=== PATIENT | female | born 1980 | race Caucasian/White ===

== ENCOUNTER 2019-07-23 08:22 | Emergency (ER) | payer OTHER, SELFPAY ==
--- NOTE | ~2019-07-23 | XR_ITS ---
XR hand LT min 3V DATE: 07/23/2019 08:48 INDICATION: Fall 3 weeks ago. Pain, particularly fourth and fifth digits TECHNIQUE: 3 views of the left hand COMPARISON: None FINDINGS: No fracture, dislocation, periosteal reaction or bone destruction. Negative ulnar variance. IMPRESSION: No fracture or dislocation Reviewed, dictated and finalized at location A. R CASER IMPRESSION: No fracture or dislocation
[2019-07-23 08:30] VITALS: BP 140/82; PULSE 77; RESP 16; TEMP 36.7; O2SAT 100
--- NOTE | 2019-07-23 08:41 | ED.GENADULT ---
HPI - General Adult General Chief complaint: Extremity Injury, Upper Stated complaint: left hand wrist injury Time Seen by Provider: 07/23/19 08:38 Source: patient and RN notes reviewed Mode of arrival: ambulatory Limitations: no limitations History of Present Illness HPI narrative: 38-year-old female presents with left lateral hand pain for 21 days. Malou says she injured her hand when she landed on it while going up a step at home. Initially had bruising and swelling in which has subsided, tenderness remains. No radiation of pain. No loss of mobility. Exacerbating factors consist of palpation and movement. The relieving factors is immobility. Dominant hand is the RIGHT HAND. No suspected abuse. Malou denies being , LMP 07/23/2019. Some parts of this dictation were generated by voice recognition software and may contain typographical and/or grammatical inaccuracies. Related Data Home Medications Medication Instructions Recorded Confirmed metformin 1,500 mg PO DAILY 07/23/19 07/23/19 Allergies Allergy/AdvReac Type Severity Reaction Status Date / Time No Known Allergies Allergy Verified 07/23/19 08:40 Review of Systems Review of Systems: Narrative: CONSTITUTIONAL: Denies fever, chills, sweats. EYES: Denies visual changes, redness, discharge. ENT: Denies rhinorrhea, congestion, sore throat, otalgia. CARDIOVASCULAR: Denies chest pain, palpitations, edema. RESPIRATORY: Denies dyspnea, wheezing, cough. GASTROINTESTINAL: Denies abdominal pain, nausea, vomiting, diarrhea. GENITOURINARY: Denies dysuria, hematuria, abnormal discharge. SKIN: Denies rash or itching. MUSCULOSKELETAL: Denies acute back pain or myalgia. Complains of Left lateral hand pain. NEUROLOGIC: Denies numbness or focal weakness. PSYCHIATRIC: Denies anxiety or depression. All other systems reviewed & are unremarkable except as noted in HPI and below. [facility]LY [facility] Past Medical History Medical History (Updated 07/23/19 @ 09:08 by [email or web address] Tate) Endometriosis PCOS (polycystic ovarian syndrome) Surgical History Surgical History (Updated 07/23/19 @ 09:08 by KRZYSZTOF Tate) History of left oophorectomy Family History Family History (Updated 07/23/19 @ 09:07 by KRZYSZTOF Tate) Grandparent Diabetes mellitus Mother Diabetes mellitus Father Atrial fibrillation Grandparent Carcinoma of colon Bile duct Social History Social History (Updated 07/23/19 @ 08:47 by KRZYSZTOF Tate) Smoking status: Former smoker Additional smoking assessment comments: Quit smoking about 13 years ago Alcohol intake: current Substance use type: marijuana Living arrangements: with family Occupation/Education: occupation Gender identity (if verbalized by the patient): Female Comments At time of signature, agree with nurse past medical, surgical, social, and family history. There is no relevant family history pertinent to the presenting complaint. Exam Narrative: Exam Narrative: GENERAL: This is a well-nourished, well-developed patient, in no apparent distress. HEAD: normocephalic, atraumatic. EYES: PERRL. Sclera clear/white. Vision is grossly intact. NECK: Neck supple, non-tender without lymphadenopathy, masses or thyromegaly. CARDIOVASCULAR: Regular rate and rhythm without murmurs, gallops, or rubs. RESPIRATORY: Clear to auscultation. Breath sounds equal bilaterally. No wheezes, rales, or rhonchi. GASTROINTESTINAL: Abdomen soft, non-tender, nondistended. Bowel sounds are active. No hepato-splenomegaly, or palpable masses. No guarding. SKIN: warm, intact with no suspicious lesions or rash, good texture and turgor. NEURO: awake, alert, and oriented to person, place and time. There were no obvious focal neurologic abnormalities. Steady gait EXTREMITIES: No clubbing, cyanosis, or edema. LT hand exam/wrist exam skin intact. LT lateral hand with mild tenderness with palpation. No lacerations. No sw
== END 2019-07-23 09:00 | disposition home or self-care (01) ==
PROVIDERS: Emergency Provider Nurse Practitioner Family
DX: S63.92XA Sprain of unspecified part of left wrist and hand, initial encounter (principal); W10.9XXA Fall (on) (from) unspecified stairs and steps, initial encounter
CPT/HCPCS: 73130; 99203; G0463

== ENCOUNTER 2020-11-23 08:00 | Emergency (ER) | payer OTHER, SELFPAY ==
[2020-11-23 08:07] VITALS: BP 123/51; PULSE 69; RESP 14; TEMP 37.2; O2SAT 98
--- NOTE | 2020-11-23 08:12 | ED.SKABFB ---
HPI - Skin/Abscess/Foreign Bdy General Chief complaint: Skin/Abscess/Foreign Body Stated complaint: insect bite on rt ankle Time Seen by Provider: 11/23/20 08:12 Source: patient, RN notes reviewed and old records reviewed Mode of arrival: ambulatory Limitations: no limitations History of Present Illness HPI narrative: 39 year old female who presents to [facility] care with complaints of insect bite to her right lateral ankle area since when she was working in the yard. Patient states that in the past 3 days she has noted blistering around the wound with some clear liquid fluid noted and itching.Patient has inner red firm area in center with 2 scabbed lesions, no induration of tissue noted or drainage noted from center region of wound. Patient states no known fevers, chills or sweats. MD complaint: insect bite/sting and other (vesicular area around central lesions) Onset (ago): day(s) (12) Tetanus up to date: no Location: RLE (laterl aspect of right ankle) Severity: moderate Quality: pruritic Pain Consistency: other (itching no acute pain to area) Relieving factors: none Exacerbating factors: none Context: other (working in the yard) Associated symptoms: itching Treatments prior to arrival: OTC topical medication (cortisone ointment and neosporin) Related Data Home Medications Medication Instructions Recorded Confirmed metformin 1,500 mg PO DAILY 07/23/19 11/23/20 Allergies Allergy/AdvReac Type Severity Reaction Status Date / Time No Known Allergies Allergy Verified 11/23/20 08:44 Review of Systems Review of Systems: Narrative: CONSTITUTIONAL: Denies fever, chills, or sweats. EYES: Denies visual changes, redness, or discharge. ENT: Denies rhinorrhea, congestion, sore throat, or otalgia. CARDIOVASCULAR: Denies chest pain, palpitations, or edema. RESPIRATORY: Denies cough or dyspnea. GASTROINTESTINAL: Denies abdominal pain, nausea, vomiting, or diarrhea. GENITOURINARY: Denies dysuria or hematuria. SKIN: Positive rash or itching. red central insect bites with surround vesicular lesions MUSCULOSKELETAL: Denies back pain, joint pain, or myalgia. NEUROLOGIC: Denies headache, numbness, or weakness. PSYCHIATRIC: Denies anxiety or depression. All systems reviewed & are unremarkable except as noted in HPI and below PMFSH Past Medical History Medical History Endometriosis PCOS (polycystic ovarian syndrome) Surgical History Surgical History History of left oophorectomy Family History Family History Grandparent Diabetes mellitus Mother Diabetes mellitus Father Atrial fibrillation Grandparent Carcinoma of colon Bile duct Social History Social History Smoking status: Former smoker Additional smoking assessment comments: Quit smoking about 13 years ago Alcohol intake: current Substance use type: marijuana Gender identity (if verbalized by the patient): Female Comments At time of signature, agree with nursing past medical, surgical, social and family history. There is no relevant family history pertinent to the presenting complaint Exam Narrative: Exam Narrative: GENERAL: Well-appearing, well-nourished, and in no acute distress. HEAD: Normocephalic, atraumatic. EYES: PERRLA and EOMI. ENT: Nares clear, no rhinorrhea or epistaxis. Mucous membranes moist. NECK: Supple.no lymphadenopathy CHEST: Clear to auscultation. No respiratory distress.SAO2 98% on room air. HEART: Regular rate and rhythm. No murmur heard. Normal peripheral pulses. ABDOMEN: Soft, nontender, nondistended, normal active bowel sounds. EXTREMITIES: Normal range of motion. No edema. SKIN: Warm, dry, red inflamed central firm area with two central scabbed lesions with surrounding vesicles noted on outer edges with
[2020-11-23] MEDS: TETANUS,DIPHTHERIA,AC PERTUSSIS ADULT (0.5 ML) BOOSTRIX IM (08:39)
== END 2020-11-23 09:03 | disposition home or self-care (01) ==
PROVIDERS: Emergency Provider Registered Nurse
DX: L23.7 Allergic contact dermatitis due to plants, except food (principal); S90.561A Insect bite (nonvenomous), right ankle, initial encounter; W57.XXXA Bitten or stung by nonvenomous insect and other nonvenomous arthropods, initial encounter; Z87.891 Personal history of nicotine dependence; N80.9 Endometriosis, unspecified; E28.2 Polycystic ovarian syndrome
CPT/HCPCS: 90471; 90715; 99203; 99213; G0463